=== PATIENT | female | born 1960 | race Caucasian/White ===

== ENCOUNTER 2020-04-03 06:07 | Observation (INO) ==
[~2020-04-03 06:07] MED LIST: Buffered Lidocaine 1% SYRIN 1 ml INTRADERM ONE; Famotidine IV 10 MG/ML 2 ml VIAL (20 mg) IV ONE; Famotidine IV 10 MG/ML 2 ml VIAL (20 mg) ONE; Lactated Ringers 1000 ml BAG 1,000 ML IV SCH; ceFAZolin 2 GM PREMIX 2 GM/50 ML BAG ONE
[2020-04-03] MEDS ORDERED: Buffered Lidocaine 1% SYRIN 1 ml INTRADERM ONE (06:09)
[2020-04-03] MEDS ORDERED: Bupivacaine 0.5% SDV PF 30ML VIAL ONE (06:59)
[2020-04-03] MEDS ORDERED: fentaNYL 100 mcg/2 ml 50 MCG/ML VIAL ONE ×6 (07:07→11:14)
[2020-04-03] MEDS ORDERED: Midazolam 5 mg/5 ml VIAL 1 mg/ml 5 ml VIAL (5 mg) ONE (07:07)
[2020-04-03] MEDS ORDERED: Vancomycin 1,000 MG VIAL ONE (07:27)
[2020-04-03] MEDS ORDERED: Rocuronium 50 mg VIAL 10 mg/ml 5 ml VIAL (50 mg) ONE (08:01)
[2020-04-03] MEDS ORDERED: Dexamethasone IV 4 MG/ML VIAL 1 ml VIAL ONE (08:01)
[2020-04-03] MEDS ORDERED: Propofol 10 MG/ML 20 ML BTL ONE (08:01)
[2020-04-03] MEDS ORDERED: Ondansetron 4 mg VIAL 2 MG/ML 2 ml VIAL ONE (08:01)
[2020-04-03] MEDS ORDERED: Lidocaine 2% PF 5 ML VIAL ONE (08:02)
[2020-04-03] MEDS ORDERED: Dexmedetomidine 200 mcg/2 ml 2 ml VIAL (200 mcg) ONE (08:21)
[2020-04-03] MEDS ORDERED: ROPIVACAINE 5 MG/ML 30 ML BTL (0.5%) ONE (09:11)
[2020-04-03] MEDS ORDERED: Ondansetron 4 mg VIAL 2 MG/ML 2 ml VIAL IV PRN ×2 (09:14→10:41)
[2020-04-03] MEDS ORDERED: diPHENhydraMINE IV 50 MG/ML 1 ml VIAL (BENADRYL) IV PRN ×2 (09:14→10:41)
[2020-04-03] MEDS ORDERED: DiMENhydriNATE IV 50 mg/ml 1 ml VIAL IV PUSH PRN (09:14)
[2020-04-03] MEDS ORDERED: Naloxone 0.4 mg VIAL 0.4 mg/ml 1 ml VIAL IV PRN (09:14)
[2020-04-03] MEDS ORDERED: Acetaminophen IV 1 GM/100ML 100 ML ONE (09:30)
[2020-04-03] MEDS ORDERED: Lactulose 30 ml UDC PO PRN (10:41)
[2020-04-03] MEDS ORDERED: diPHENhydraMINE 25 mg TAB PO PRN (10:41)
[2020-04-03] MEDS ORDERED: Magnesium Hydroxide LIQ 30 ML UDC PO PRN (10:41)
[2020-04-03] MEDS ORDERED: Ondansetron ODT 4 mg TAB 4 MG TAB PO PRN (10:41)
[2020-04-03] MEDS ORDERED: oxyCODONE/Acetamin 5/325 mg TAB PO PRN (10:41)
[2020-04-03] MEDS: fentaNYL 100 mcg/2 ml 50 MCG/ML VIAL IV PRN ×5 (10:41→11:26)
[2020-04-03] MEDS: Lactated Ringers 1000 ml BAG 1,000 ML IV SCH ×2 (12:10→22:37)
[2020-04-03] MEDS: ceFAZolin 1 GM ADVAN 1 GM in NS 0.9% 50 ML 50 ML IVPB SCH ×2 (15:55→23:48)
[2020-04-03] MEDS: oxyCODONE/Acetamin 5/325 mg TAB PO PRN (19:06)
[2020-04-03] MEDS: Magnesium Hydroxide LIQ 30 ML UDC PO SCH (20:30)
[2020-04-03] MEDS ORDERED: Conjugated Estrogens 0.3mg TAB PO SCH (21:00)
[2020-04-03] MEDS ORDERED: DULoxetine DR 60 mg CAP PO SCH (21:00)
[2020-04-03] MEDS ORDERED: Cholecalciferol (VIT D3) 1,000 unit TAB PO SCH (21:00)
[2020-04-04] MEDS: oxyCODONE/Acetamin 5/325 mg TAB PO PRN ×3 (02:38→14:54)
[2020-04-04 06:00] LABS: Hematocrit 30 % (35-47); Hemoglobin 10.3 g/dL (12.0-16.0); Mean Platelet Volume 8.2 fL (7.4-10.4); Platelet Count 216 10^3/uL (150-450)
[2020-04-04 06:38] LABS: BUN/Creatinine Ratio 19.8 (8-20); Calcium 8.4 mg/dL (8.6-10.3); EGFR African American 81.4 (>60); EGFR Non-African American 67.3 (>60)
[2020-04-04] MEDS: ceFAZolin 1 GM ADVAN 1 GM in NS 0.9% 50 ML 50 ML IVPB SCH (07:31)
[2020-04-04] MEDS: Lactated Ringers 1000 ml BAG 1,000 ML IV SCH (07:47)
[2020-04-04] MEDS ORDERED: Vitamin THERAPEUTIC TAB PO SCH (09:00)
[2020-04-04] MEDS: Magnesium Hydroxide LIQ 30 ML UDC PO SCH (09:09)
[2020-04-04 15:50] VITALS: BP 126/71
[2020-04-06] MEDS ORDERED: Scopolamine PATCH Remove NOTE PATCH OFF ONE (09:17)
== END 2020-04-04 19:45 | disposition home or self-care (01) ==
LOC: AA 06:07 → INTOOBSV 06:07 → SSU 11:55
PROVIDERS: ADMIT Orthopaedic Surgery; ATTEND Orthopaedic Surgery

== ENCOUNTER 2020-12-13 10:07 | Observation (INO) ==
[2020-12-13 10:41] LABS: ABS Basophils 0.1 10^3/ul (0-0.2); ABS Eosinophils 0.4 10^3/ul (0-0.6); ABS Monocytes 0.7 10^3/ul (0-0.8); ABS Neutrophils 3.1 10^3/ul (1.5-7.7); Eosinophil % 6.2 %; Hematocrit 38 % (35-47); Hemoglobin 12.8 g/dL (12.0-16.0); Lymphocyte % 31.8 %; Mean Corpuscular HGB Conc 33 g/dL (31-36); Mean Corpuscular Hemoglobin 30 pg (27-31); Mean Corpuscular Volume 89 fL (80-97); Mean Platelet Volume 8.6 fL (7.4-10.4); Nucleated Red Blood Cells % 0.1; Platelet Count 223 10^3/uL (150-450); Red Blood Count 4.32 10^6 /uL (3.70-4.87); Red Cell Distribution Width 15 % (10-15); White Blood Count 6.2 10^3/uL (3.5-10.8)
[2020-12-13 10:54] LABS: INR 0.94 (0.82-1.09)
[2020-12-13 11:04] LABS: Potassium 4.2 mmol/L (3.5-5.0)
[2020-12-13 11:05] LABS: Albumin 3.9 g/dL (3.2-5.2); Albumin/Globulin Ratio 1.5 (1-3); Calcium 8.7 mg/dL (8.6-10.3); EGFR African American 75.3 (>60); EGFR Non-African American 62.3 (>60); Globulin 2.6 g/dL (2-4); Total Bilirubin 0.3 mg/dL (0.2-1.0); Total Protein 6.5 g/dL (6.4-8.9)
[2020-12-13] MEDS ORDERED: Al Hydrox/Mg Hydrox/Simet LIQ 30 ML UDC PO PRN (15:43)
[2020-12-13 18:16] LABS: Magnesium 2.5 mg/dL (1.9-2.7)
[2020-12-13 20:30] LABS: HDL Cholesterol 45.1 mg/dL
[2020-12-13] MEDS ORDERED: Enoxaparin 40 MG/0.4 ML SYR SUBCUT SCH (21:00)
[2020-12-13] MEDS ORDERED: DULoxetine DR 60 mg CAP PO SCH (21:00)
[2020-12-14 07:27] LABS: Hematocrit 40 % (35-47); Hemoglobin 13.7 g/dL (12.0-16.0); Mean Corpuscular HGB Conc 34 g/dL (31-36); Mean Corpuscular Hemoglobin 30 pg (27-31); Mean Corpuscular Volume 87 fL (80-97); Mean Platelet Volume 8.7 fL (7.4-10.4); Platelet Count 231 10^3/uL (150-450); Red Blood Count 4.62 10^6 /uL (3.70-4.87); Red Cell Distribution Width 15 % (10-15)
[2020-12-14 07:41] LABS: Calcium 9.4 mg/dL (8.6-10.3); EGFR African American 93.9 (>60); EGFR Non-African American 77.6 (>60); Potassium 3.8 mmol/L (3.5-5.0)
[2020-12-14] MEDS ORDERED: Regadenoson 0.4 MG/5 ML SYRINGE ONE (08:22)
[2020-12-14] MEDS ORDERED: Aminophylline 25 MG/ML VIAL ONE (08:26)
[2020-12-14 14:07] VITALS: BP 135/70
== END 2020-12-14 14:50 | disposition home or self-care (01) ==
LOC: ED 10:07 → MEDTELE 10:07
PROVIDERS: ADMIT Pediatrics; ATTEND Internal Medicine